=== PATIENT | female | born 1965 | race Caucasian/White ===

== ENCOUNTER 2017-12-14 09:53 | Emergency (ER) | payer OTHER, MEDICAID ==
[2017-12-14 09:58] VITALS: BP 168/82
[2017-12-14] MEDS ORDERED: PREDNISONE 20 MG TABLET PO ONE (11:03)
[2017-12-14] MEDS ORDERED: CEPHALEXIN 500 MG CAPSULE PO ONE (11:03)
--- NOTE | 2017-12-14 11:09 | ER Document Report ---
ED Skin Rash/Insect Bite/Abscs - General Chief Complaint: Rash Stated Complaint: RASH Time Seen by Provider: 12/14/17 10:37 Mode of Arrival: Ambulatory Information source: Patient Notes: 51-year-old female presents to ED for complaint of "gout flareup" to her right foot with a rash to her right great toe. She states that she has had this pain for 2-3 days. TRAVEL OUTSIDE OF THE [place] IN LAST 30 DAYS: No - HPI Patient complains to provider of: Skin rash/lesion - Right great toe, Other - Redness to the top of the foot Onset: Other - 2-3 days and getting worse Onset/Duration: Gradual Quality of pain: Burning Severity: Moderate Pain Level: 3 Skin Character: Erythema, Rash - Great toe Quality of rash: Painful, Burning Exacerbated by: Denies Relieved by: Denies Similar symptoms previously: Yes Recently seen / treated by doctor: No - Related Data Allergies/Adverse Reactions: No Known Allergies Allergy (Verified 12/14/17 09:53) Past Medical History - General Information source: Patient - Social History Smoking Status: Former Smoker Cigarette use (# per day): No Chew tobacco use (# tins/day): No Smoking Education Provided: No Frequency of alcohol use: None Drug Abuse: None Occupation: None Lives with: Homeless Family History: Reviewed & Not Pertinent Patient has suicidal ideation: No Patient has homicidal ideation: No - Past Medical History Cardiac Medical History: Reports: Hx Coronary Artery Disease, Hx Hypercholesterolemia, Hx Hypertension Pulmonary Medical History: Reports: None EENT Medical History: Reports: None Neurological Medical History: Reports: Other - Dystonia Endocrine Medical History: Reports: Hx Diabetes Mellitus Type 2 Renal/ Medical History: Reports: None Malignancy Medical History: Reports: None GI Medical History: Reports: Hx Gastroesophageal Reflux Disease Musculoskeletal Medical History: Reports Hx Arthritis, Reports Hx Gout Skin Medical History: Reports None Psychiatric Medical History: Reports: Hx Bipolar Disorder Traumatic Medical History: Reports: None Infectious Medical History: Reports: None Past Surgical History: Reports: Hx Abdominal Surgery - Tummy tuck, Hx Cardiac Catheterization - With stents, Hx Cholecystectomy, Hx Coronary Stent - Immunizations Immunizations up to date: No Review of Systems - Review of Systems Constitutional: No symptoms reported EENT: No symptoms reported Cardiovascular: No symptoms reported Respiratory: No symptoms reported Gastrointestinal: No symptoms reported Genitourinary: No symptoms reported Female Genitourinary: No symptoms reported Musculoskeletal: No symptoms reported Skin: Change in color, Rash Hematologic/Lymphatic: No symptoms reported Neurological/Psychological: No symptoms reported -: Yes All other systems reviewed and negative Physical Exam - Vital signs Vitals: Temp Pulse Resp BP Pulse Ox 99.3 F 77 18 168/82 H 95 12/14/17 09:57 12/14/17 09:57 12/14/17 09:57 12/14/17 09:57 12/14/17 09:57 Interpretation: Normal - General General appearance: Appears well, Alert - HEENT Head: Normocephalic, Atraumatic Eyes: Normal Pupils: PERRL - Respiratory Respiratory status: No respiratory distress Chest status: Nontender Breath sounds: Normal Chest palpation: Normal - Cardiovascular Rhythm: Regular Heart sounds: Normal auscultation Murmur: No - Abdominal Inspection: Normal Distension: No distension Bowel sounds: Normal Tenderness: Nontender Organomegaly: No organomegaly - Back Back: Normal, Nontender - Extremities General upper extremity: Normal inspection, Nontender, Normal color, Normal ROM , Normal temperature General lower extremity: Normal ROM, Normal temperature, Normal weight bearing. No: José Miguel's sign Foot: Tender, Edema, No evidence of FB, Other - Erythema and swelling to the right great toe warm to touch. Mild erythema to the top of the right foot appears to be cellulitis to the foot and gout to the toe - Neurological Neuro grossly intact: Yes Cognition: Normal Orientation: AAOx4 [place] Coma Scale Eye Opening: Spontaneous [place] Coma Scale Verbal: Oriented [place] Coma Scale Motor: Obeys Commands [place] Coma Scale Total: 15 Speech: Normal Motor strength normal: LUE, RUE, LLE, RLE Sensory: Normal - Psychological Associated symptoms: Normal affect, Normal mood - Skin Skin Temperature: Warm Skin Moisture: Dry Skin Color: Normal Course - Re-evaluation Re-evalutation: 12/14/17 22:24 She stated she did not know of any injuries to the toe but she does have a history of gout. The toe is cellulitic in appearance so she was started on antibiotics and she was started on steroids for her gout. She cannot take anti- inflammatories due to her elevated blood pressure and her cardiac history. - Vital Signs Vital signs: Temp Pulse Resp BP Pulse Ox 99.3 F 77 18 168/82 H 95 12/14/17 09:57 12/14/17 09:57 12/14/17 09:57 12/14/17 09:57 12/14/17 09:57 Discharge - Discharge Clinical Impression: Cellulitis of great toe, right Gout attack Qualifiers: Gout site: foot Gout etiology: unspecified cause Laterality: right Qualified Code(s): M10.9 - Gout, unspecified Condition: Stable Disposition: HOME, SELF-CARE Instructions: Family Physicians / Practices Additional Instructions: CELLULITIS: You have an infection of your skin and underlying soft tissues called cellulitis. This is due to bacteria, which can enter through any break in the skin, or even through an irritated hair follicle. Untreated, cellulitis will usually worsen. Antibiotics are required. Usually, warm packs or warm soaks, and elevation of the infected area are recommended. You should start getting better within 24 to 36 hours. Most infections respond quickly to the right medication. Follow-up care is important, however, to check for abscess (boil) formation, unsuspected foreign body, or resistant infection. If you develop fever, chills, or if the area of infection is becoming rapidly more swollen or painful, call the doctor at once. Gout You have been diagnosed as having gout. Gout is a problem caused by an excess of uric acid, a natural chemical found in the body. The cause of this disease is unknown. Gout arthritis occurs when crystals of uric acid form in the joints. The big toe is the most common joint involved, but any joint can become affected. Persons with gout may also form uric acid kidney stones, resulting in flank pain and blood in the urine. Nodules of uric acid may form under the skin. The first step of treatment is to decrease the inflammation in the joint with antiinflammatory medication. Medication to lower the uric acid level in the blood may then be prescribed. This medication should be taken regularly, as any sudden change in dosage may provoke an attack of gout. Some foods, such as red meat, can provoke an attack in some gout sufferers. Call the doctor if new symptoms arise, or if you do not improve. Gout Diet Changing your diet can decrease the uric acid in your blood. High levels of uric acid cause gouty arthritis and uric acid kidney stones. If you have gout , you should avoid meats that are high in purine. Meat products to avoid include liver, kidneys, and brains. In general, poultry is better than red meats. Seafoods to avoid include anchovies, sardines, ernandez, mackerel, and scallops. In addition to limiting purine-rich foods, people with gout should limit protein intake to 10-15% of total calories. Carbohydrate intake should be around 50% of total daily calories. Limit fat intake to 30% of total daily calories. Cholesterol intake should be less than 300 mg/day. Maintain or achieve a healthy body weight. Weight loss should be gradual. Rapid weight loss can actually increase uric acid levels temporarily. Alcohol, especially beer, should be avoided. Get plenty of fluids. This dilutes urinary uric acid, and helps prevent uric acid kidney stones. Drink eight to twelve cups of water daily. Cephalexin The antibiotic you've been prescribed is a member of the cephalosporin class. This type of antibiotic covers a wide variety of infections, including those of the skin, lungs, and urinary tract. It's useful for staph infections. This antibiotic is slightly similar to the penicillin family. In rare cases , a person who is allergic to penicillin will also be allergic to this medication. If you have had a severe allergic reaction to penicillin, and have not taken this antibiotic since that time, notify your doctor. Antibiotics which cover many germs ("broad spectrum" antibiotics) are more likely to cause diarrhea or "yeast" infections. Women prone to vaginal yeast problems may suffer an attack after taking this antibiotic. In infants, oral thrush (white spots "stuck" on the cheek) or yeast diaper rash may result. See your doctor if these problems occur. Call at once if you develop itching, hives , shortness of breath, or lightheadedness. STEROID MEDICATION: You have been given a medicine of the cortisone/steroid class. This medication is used to control inflammation or allergy. It is usually only given for a short period of time, until the acute process subsides. There are usually no side effects from short-term use of cortisone-like medications. Some persons feel an increased sense of well-being and are not sleepy at bedtime. Long-term use of cortisone medications is best avoided, unless required for a severe condition. If your condition does not remit, or relapses after the course of corticosteroid medication, you should consult your physician. FOLLOW-UP CARE: If you have been referred to a physician for follow-up care, call the physician s office for an appointment as you were instructed or within the next two days. If you experience worsening or a significant change in your symptoms, notify the physician immediately or return to the Emergency Department at any time for re-evaluation. Prescriptions: Cephalexin Monohydrate [Keflex 500 mg Capsule] 500 mg PO Q6H 5 Days capsule Prednisone [Deltasone 20 mg Tablet] 2 tab PO DAILY 3 Days tablet Forms: Elevated Blood Pressure
== END 2017-12-14 11:15 | disposition home or self-care (01) ==
LOC: ER 09:53
DX: L03.031 Cellulitis of right toe (principal); M10.9 Gout, unspecified; Z87.891 Personal history of nicotine dependence; E11.9 Type 2 diabetes mellitus without complications
CPT/HCPCS: 99282; A9270 ×2; J7512